=== PATIENT | male | born 1980 | race Caucasian/White ===

== ENCOUNTER 2022-12-22 19:00 | Emergency (ER) | payer SELFPAY | END 2022-12-22 20:42 | disposition home or self-care (01) | LOC: CSHERS 19:00 | DX: R05.9 Cough, unspecified (principal) | CPT/HCPCS: 99283 ==

== ENCOUNTER 2023-08-26 04:19 | Emergency (ER) | payer SELFPAY ==
[2023-08-26] MEDS ORDERED: Morphine 4 MG/ML VIAL ONE (04:59)
[2023-08-26] MEDS ORDERED: Orphenadrine Citrate 60 MG/2 ML VIAL ONE (05:00)
[2023-08-26] MEDS ORDERED: Ketorolac Tromethamine 30 MG/ML VIAL ONE (05:00)
[2023-08-26] MEDS ORDERED: Ondansetron PF 4 MG/2 ML Vial ONE (05:00)
[2023-08-26] MEDS ORDERED: Lidocaine 4% Patch TD SCH (05:15)
== END 2023-08-26 06:04 | disposition home or self-care (01) ==
LOC: CSHERS 04:19
DX: M54.50 Low back pain, unspecified (principal); F17.220 Nicotine dependence, chewing tobacco, uncomplicated
CPT/HCPCS: 96372; 96374; 96375; J1885; J2270; J2360; J2405

== ENCOUNTER 2023-08-27 05:46 | Emergency (ER) | payer OTHER, SELFPAY ==
[2023-08-27] MEDS ORDERED: Ketorolac Tromethamine 30 MG/ML VIAL ONE (06:19)
[2023-08-27] MEDS ORDERED: Dexamethasone 10 MG/ML VIAL ONE (06:19)
== END 2023-08-27 06:36 | disposition home or self-care (01) ==
LOC: CSHERS 05:46
DX: M54.42 Lumbago with sciatica, left side (principal); F17.220 Nicotine dependence, chewing tobacco, uncomplicated
CPT/HCPCS: 96372; 99283; J1100; J1885

== ENCOUNTER 2023-08-31 04:50 | Emergency (ER) | payer OTHER ==
[2023-08-31] MEDS ORDERED: Morphine 4 MG/ML VIAL ONE (06:06)
[2023-08-31] MEDS ORDERED: Ketorolac Tromethamine 30 MG/ML VIAL ONE (06:07)
[2023-08-31] MEDS ORDERED: Dexamethasone 10 MG/ML VIAL ONE (06:07)
== END 2023-08-31 06:55 | disposition home or self-care (01) ==
LOC: CSHERS 04:50
DX: M54.42 Lumbago with sciatica, left side (principal); F17.220 Nicotine dependence, chewing tobacco, uncomplicated
CPT/HCPCS: 96372; 96374; J1100; J1885; J2270

== ENCOUNTER 2023-10-02 23:55 | Emergency (ER) | payer OTHER ==
[2023-10-03] MEDS ORDERED: Ketorolac Tromethamine 30 MG/ML VIAL ONE (00:31)
[2023-10-03] MEDS ORDERED: Morphine 4 MG/ML VIAL ONE (00:31)
[2023-10-03] MEDS ORDERED: Cyclobenzaprine 10 MG TAB ONE (00:32)
== END 2023-10-03 00:46 | disposition home or self-care (01) ==
LOC: CSHERS 23:55
DX: M54.50 Low back pain, unspecified (principal); F17.220 Nicotine dependence, chewing tobacco, uncomplicated
CPT/HCPCS: 96372; 99283; J1885; J2270

== ENCOUNTER 2024-05-08 12:40 | Emergency (ER) | payer OTHER ==
[2024-05-08 14:06] LABS: #Basophils 0.05 10x3/uL (0.0-0.2); #Monocytes 0.99 10x3/uL (0.0-1.1); #Neutrophils 6.71 10x3/uL (1.5-8.4); %Basophils 0.5 % (0.0-2.0); %Lymphocytes 21.6 % (18.0-47.0); %Monocytes 9.7 % (0.0-10.0); ALT (SGPT) 43 U/L (8-55); AST (SGOT) 28 U/L (5-34); Albumin 3.9 g/dL (3.5-5.0); Alkaline Phosphatase 78 U/L (40-110); Anion Gap 13 mmol/L (10-20); BUN (Urea Nitrogen) 14 mg/dL (8.9-20.6); Bilirubin, Total 0.4 mg/dL (0.2-1.2); Calc. Creatinine Clearance 0 mL/min (70-130); Carbon Dioxide 24 mmol/L (22-29); Chloride 105 mmol/L (98-107); Estimated GFR 102; Globulin 2.7 g/dL (2.4-3.5); Glucose 87 mg/dL (70-105); Hematocrit 40.3 % (38.8-50.0); Hemoglobin 14.6 g/dL (13.5-17.5); Mean Corpuscular HGB CONC 36.2 g/dL (32.0-36.0); Mean Corpuscular Hemoglobin 32.7 pg (27.0-33.0); Mean Corpuscular Volume 90.4 fL (81.2-95.1); Platelet Count 288 10x3/uL (150-450); Potassium 3.9 mmol/L (3.5-5.1); Protein, Total 6.6 g/dL (6.0-8.3); RBC Distribution Width 12.5 % (11.5-14.5); Red Blood Cell (RBC) Count 4.46 10x6/uL (4.32-5.72); Sodium 138 mmol/L (136-145); White Blood Cell (WBC) Count 10.2 10x3/uL (3.5-10.5)
[2024-05-08 14:10] LABS: Troponin I Less than 0.010 ng/mL (< 0.028)
== END 2024-05-08 16:10 | disposition home or self-care (01) ==
LOC: CSHERS 12:40
DX: K29.00 Acute gastritis without bleeding (principal); I10 Essential (primary) hypertension; F17.220 Nicotine dependence, chewing tobacco, uncomplicated
CPT/HCPCS: 36415; 71045; 71275; 80053; 84484; 85025; 93005